=== PATIENT | female | born 1995 | race Caucasian/White ===

== ENCOUNTER 2024-03-08 15:11 | Emergency (ER) | payer MEDICAID ==
[~2024-03-08] VITALS: Ht 154.9 cm; Wt 55.0 kg
[2024-03-08 15:22] VITALS: O2SAT 99
[2024-03-08] MEDS ORDERED: IBUP-2028 MT (17:10)
[2024-03-08] MEDS: KETOROLAC 30MG/ML VIAL IM ONE (17:50)
[2024-03-08 18:11] VITALS: BP 145/80; PULSE 100; RESP 16; TEMP 36.78072; O2SAT 99
== END 2024-03-08 18:12 | disposition home or self-care (01) ==
LOC: ER 15:11
DX: S83.411A Sprain of medial collateral ligament of right knee, initial encounter (principal); X58.XXXA Exposure to other specified factors, initial encounter; Y93.89 Activity, other specified; Y92.89 Other specified places as the place of occurrence of the external cause; Y99.8 Other external cause status
CPT/HCPCS: 99283; 29505; 81025; 73560; 96372; J1885